=== PATIENT | male | born 1960 | race Caucasian/White ===

== ENCOUNTER 2020-03-14 09:01 | Emergency (ER) | payer OTHER ==
[2020-03-14 10:29] LABS: ABSOLUTE EOSINOPHILS # (AUTO) 0.2 10^3/uL (0.0-0.6); ABSOLUTE LYMPHOCYTES (AUTO) 1.1 10^3/uL (0.5-4.7); ABSOLUTE MONOCYTES (AUTO) 0.5 10^3/uL (0.1-1.4); ABSOLUTE NEUT (AUTO) 5.1 10^3/uL (1.7-8.2); BASOPHILS % (AUTO) 0.6 % (0-2); EOSINOPHILS % (AUTO) 2.5 % (0-6); HEMOGLOBIN 14.1 g/dL (13.5-17.0); LYMPHOCYTES % (AUTO) 16.4 % (13-45); MEAN CORPUSCULAR HGB CONC 34.4 g/dL (32.0-36.0); MEAN CORPUSCULAR VOLUME 84 fl (80-97); MONOCYTES % (AUTO) 6.8 % (3-13); PLATELET COUNT 164 10^3/uL (150-450); RED BLOOD COUNT 4.86 10^6/uL (4.35-5.55); SEGMENTED NEUTROPHILS % (AUTO) 73.7 % (42-78); TOTAL CELLS COUNTED % (AUTO) 100 %; WHITE BLOOD COUNT 6.9 10^3/uL (4.0-10.5)
[2020-03-14 10:36] LABS: APPEARANCE,URINE CLEAR; BILIRUBIN,URINE NEGATIVE (NEGATIVE); COLOR,URINE YELLOW; GLUCOSE, URINE NEGATIVE (NEGATIVE); KETONES,URINE NEGATIVE (NEGATIVE); LEUKOCYTE ESTERASE,URINE NEGATIVE (NEGATIVE); NITRITE,URINE NEGATIVE (NEGATIVE); PROTEIN,URINE NEGATIVE (NEGATIVE); UROBILINOGEN,URINE NEGATIVE mg/dL (<2.0)
[2020-03-14] MEDS ORDERED: NORMAL SALINE 1000 ML 1,000 ML IV ONE (10:43)
[2020-03-14 10:48] LABS: ALBUMIN 4.1 g/dL (3.5-5.0); ALKALINE PHOSPHATASE 138 U/L (38-126); ANION GAP 10 (5-19); ASPARTATE AMINO TRANSFERASE 125 U/L (17-59); BILIRUBIN,DIRECT 0.1 mg/dL (0.0-0.4); BILIRUBIN,TOTAL 0.8 mg/dL (0.2-1.3); BLOOD UREA NITROGEN 16 mg/dL (7-20); CALCIUM 9.2 mg/dL (8.4-10.2); CARBON DIOXIDE 24 mmol/L (22-30); CHLORIDE 103 mmol/L (98-107); GLUCOSE 129 mg/dL (75-110); POTASSIUM 4.1 mmol/L (3.6-5.0); TOTAL PROTEIN 6.9 g/dL (6.3-8.2)
--- NOTE | 2020-03-14 14:03 | RADIOLOGY REPORT (SQ) ---
EXAM DESCRIPTION: CT ABD/PELVIS WITH IV ORAL IMAGES COMPLETED DATE/TIME: 03/14/2020 1:26 pm REASON FOR STUDY: abd pain/bilat lower quads with rebound. COMPARISON: None. TECHNIQUE: CT scan of the abdomen and pelvis performed using helical scanning technique with dynamic intravenous contrast injection. With oral contrast. Images reviewed with lung, soft tissue, and bon e windows. Reconstructed coronal and sagittal MPR images reviewed. Delayed images for evaluation of t he urinary system also acquired. All images stored on PACS. All CT scanners at this facility use dose modulation, iterative reconstruction, and/or weight based d osing when appropriate to reduce radiation dose to as low as reasonably achievable (ALARA). [facility]: Dose Right [facility]: CareDose [facility]: Dose Right [facility]: Teradose 4D [facility]: [employer] CONTRAST TYPE AND DOSE: contrast/concentration: Isovue 350.00 mmol/ml; Total Contrast Delivered: 100 .0 ml; Total Saline Delivered: 72.0 ml RENAL FUNCTION: Creatinine 1.29 RADIATION DOSE: CT Rad equipment meets quality standard of care and radiation dose reduction techniq ues were employed. CTDIvol: 14.3 - 19.0 mGy. DLP: 1943 mGy-cm.. LIMITATIONS: None. FINDINGS: LOWER CHEST: Atelectasis at the lung bases. LIVER: Normal size. No masses. No dilated ducts. SPLEEN: Normal size. No focal lesions. PANCREAS: No masses. No significant calcifications. No adjacent inflammation or peripancreatic fluid collections. Pancreatic duct not dilated. GALLBLADDER: No identified stones by CT criteria. No inflammatory changes to suggest cholecystitis. ADRENAL GLANDS: No significant masses or asymmetry. RIGHT KIDNEY AND URETER: No solid masses. No significant calcifications. No hydronephrosis or hyd roureter. LEFT KIDNEY AND URETER: Peripelvic cysts. No significant calcifications. No hydronephrosis or hyd roureter. AORTA AND VESSELS: No aneurysm. No dissection. Renal arteries, SMA, celiac without stenosis. RETROPERITONEUM: No retroperitoneal adenopathy, hemorrhage or masses. BOWEL AND PERITONEAL CAVITY: Pericolonic fat stranding along the sigmoid colon. Diverticulitis. No perforation or abscess. APPENDIX: Normal. PELVIS: No mass. No free fluid. Normal bladder. ABDOMINAL WALL: No masses. No hernias. BONES: No significant or acute findings. OTHER: No other significant finding. IMPRESSION: Sigmoid diverticulitis. No perforation or abscess peer TECHNICAL DOCUMENTATION: JOB ID: [id number] Quality ID # [id number]: Final reports with documentation of one or more dose reduction techniques (e.g., Au tomated exposure control, adjustment of the mA and/or kV according to patient size, use of iterative reconstruction technique) 2010 [email or web address]- All Rights Reserved Reading location - IP/workstation name: [email or web address]
[2020-03-14] MEDS ORDERED: METRONIDAZOLE 500 MG TABLET PO ONE (15:15)
[2020-03-14] MEDS ORDERED: CIPROFLOXACIN HCL 500 MG TABLET PO ONE (15:16)
[2020-03-14] MEDS ORDERED: MORPHINE SULFATE 10 MG/ML INJ IV ONE (15:17)
[2020-03-14] MEDS ORDERED: ONDANSETRON HCL INJ/PF 4 MG/2 ML SDV IV ONE (15:17)
--- NOTE | 2020-03-14 16:16 | ER Document Report ---
Entered by KAYLEIGH DWYER SCRIBE 03/14/20 1023 Acting as scribe for:NELSON FARRAR MD ED GI/ - General Chief Complaint: Lower Abdominal Pain Stated Complaint: ABDOMINAL PAIN Time Seen by Provider: 03/14/20 09:50 Information source: Patient Notes: This 59 year old male patient presents to the emergency department today with bilateral lower quadrant abdominal pain that radiates to his lower back and began x3 days ago. Patient states he is visiting from [place], reports history of IBS, and routine colonoscopies, with his last x2 years ago without any acute findings. 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 Patient reports frequent urination with a rust-like color, and denies dysuria. Denies night sweats or sudden weight loss. Patient states his pain is exacerbated when driving over railroad tracks or jumping up and down. - Related Data Allergies/Adverse Reactions: No Known Allergies Allergy (Verified 03/14/20 09:32) Home Medications: omeprazole. rosuvastatin. cholecalciferol. tadalafil. timolol. lantoprost Past Medical History - General Information source: Patient - Social History Smoking Status: Never Smoker Cigarette use (# per day): No Chew tobacco use (# tins/day): No Frequency of alcohol use: None Drug Abuse: None Lives with: Family Family History: Reviewed & Not Pertinent, Malignancy Patient has homicidal ideation: No - Past Medical History Cardiac Medical History: Reports: Hx Hypercholesterolemia Malignancy Medical History: Reports Hx Skin Cancer GI Medical History: Reports: Hx Irritable Bowel, Hx Colonoscopy Review of Systems - Review of Systems Constitutional: See HPI, Other - no night sweats. denies: Weight loss EENT: No symptoms reported Cardiovascular: No symptoms reported Respiratory: No symptoms reported Gastrointestinal: See HPI, Abdominal pain - lower quadrants, Last bowel movement - this AM Genitourinary: See HPI, Frequency. denies: Dysuria Male Genitourinary: No symptoms reported Musculoskeletal: See HPI, Back pain - lower Skin: No symptoms reported Hematologic/Lymphatic: No symptoms reported Neurological/Psychological: No symptoms reported -: Yes All other systems reviewed and negative Physical Exam - Vital signs Vitals: Temp Pulse Resp BP Pulse Ox 98.5 F 63 16 126/76 H 97 03/14/20 09:06 03/14/20 09:06 03/14/20 09:06 03/14/20 09:06 03/14/20 09:06 - General General appearance: Appears well, Alert - HEENT Head: Normocephalic, Atraumatic Eyes: Normal Pupils: PERRL Neck: Supple - Respiratory Respiratory status: No respiratory distress Chest status: Nontender Breath sounds: Normal Chest palpation: Normal - Cardiovascular Rhythm: Regular Heart sounds: Normal auscultation, S1 appreciated, S2 appreciated Murmur: No - Abdominal Distension: Distended - mild Bowel sounds: Hyperactive Notes: Bilateral rebound tenderness, L>R. - Back Back: Normal, Nontender - Extremities General upper extremity: Normal inspection, Normal ROM General lower extremity: Normal inspection, Normal ROM. No: Edema - Neurological Neuro grossly intact: Yes Cognition: Normal Orientation: AAOx4 Fidencio Coma Scale Eye Opening: Spontaneous Fidencio Coma Scale Verbal: Oriented Fidencio Coma Scale Motor: Obeys Commands Fidencio Coma Scale Total: 15 Speech: Normal Motor strength normal: LUE, RUE, LLE, RLE Sensory: Normal - Psychological Associated symptoms: Normal affect, Normal mood - Skin Skin Temperature: Warm Skin Moisture: Dry Skin Color: Normal Course - Re-evaluation Re-evalutation: 03/15/20 14:45 Addendum note from yesterday's delivery services. Patient tolerated the wait time and for the CT scan of abdomen and pelvis with oral and IV contrast. We found that patient had a uncomplicated sigmoid diverticulitis without perforation or abscess. Discussed this with patient regarding her treatment plan that outpatient management and oral antibiotics was all that was indicated along with some pain management. Patient understood and agreed to the plan. Patient was given p.o. medications prior to discharge including IV morphine and Zofran for pain. Patient was medically stable and pain-free on discharge. - Vital Signs Vital signs: Temp Pulse Resp BP Pulse Ox 98.2 F 82 16 120/70 98 03/14/20 16:37 03/14/20 16:37 03/14/20 16:37 03/14/20 16:37 03/14/20 16:37 - Laboratory Result Diagrams: 03/14/20 09:54 03/14/20 09:54 Laboratory results interpreted by me: 03/14/20 03/14/20 09:54 09:54 Creatinine 1.29 H Est GFR (MDRD) Non-Af 57 L Glucose 129 H AST 125 H ALT 146 H Alkaline Phosphatase 138 H Urine Blood MODERATE H Discussed with patient whether or not he had any known liver disease gallstones hepatitis overuse of alcohol or Tylenol. Reported that he has never had any problems with any of the above and no known diagnosis of hepatitis in the past. Patient does take statin drug which may be the culprit and cause of the elevations in the liver function test. Recommended patient follow-up with his primary care physician regarding the use of lovastatin. I recommended patient withhold that medication until further evaluation by his primary. - Diagnostic Test Radiology reviewed: Image reviewed, Reports reviewed Radiology results interpreted by me: 03/15/20 14:48 Abdomen/Pelvis CT 03/14/20 00:00 IMPRESSION: Sigmoid diverticulitis. No perforation or abscess peer Abdomen pelvis CT with IV and oral contrast showed sigmoid diverticulitis without any perforation or abscess. Discharge - Discharge Clinical Impression: Diverticulitis large intestine w/o perforation or abscess w/o bleeding, Elevated liver function tests Condition: Stable Disposition: HOME, SELF-CARE Instructions: Ciprofloxacin ([facility]), Diverticulitis ([facility]), Low Residue Diet ([facility]) Prescriptions: Ciprofloxacin HCl [Cipro 500 mg Tablet] 500 mg PO BID #20 tablet Metronidazole [Flagyl 500 mg Tablet] 500 mg PO BID #20 tablet Oxycodone HCl/Acetaminophen [Percocet 5-325 mg Tablet] 1 tab PO QID PRN #20 tablet PRN Reason: severe pain Metoclopramide HCl [Reglan 10 mg Tablet] 10 mg PO QID PRN #20 tablet PRN Reason: I personally performed the services described in the documentation, reviewed and edited the documentation which was dictated to the scribe in my presence, and it accurately records my words and actions.
[2020-03-14 16:38] VITALS: BP 120/70
== END 2020-03-14 16:38 | disposition home or self-care (01) ==
LOC: ER 09:01
DX: K57.32 Diverticulitis of large intestine without perforation or abscess without bleeding (principal); R79.89 Other specified abnormal findings of blood chemistry; R35.0 Frequency of micturition; E78.00 Pure hypercholesterolemia, unspecified; Z79.899 Other long term (current) drug therapy
CPT/HCPCS: 99285; 96361; 96374; 96375; 36415; 83605; 83690; 85025; 80053; 81001; 74177; J2270; J2405; J7030